=== PATIENT | female | born 1945 | race Caucasian/White ===

== ENCOUNTER → 2019-06-25 | Outpatient (REF) | payer MEDICARE ==
[2019-06-27 10:45] LABS: HEPATITIS A ANTIBODY IGM NEGATIVE (NEGATIVE); HEPATITIS B CORE ANTIBODY IGM NEGATIVE (NEGATIVE); HEPATITIS B SURFACE ANTIGEN NEGATIVE (NEGATIVE); HEPATITIS C VIRUS ABY INDEX < 0.0 INDEX (<0.8)
== END ==
LOC: M LAB REF 12:31
PROVIDERS: ATTEND Internal Medicine
DX: R79.89 Other specified abnormal findings of blood chemistry (principal)

== ENCOUNTER → 2019-06-26 | Outpatient (REF) | payer MEDICARE | LOC: M LAB REF 10:13 | PROVIDERS: ATTEND Internal Medicine | DX: B89 Unspecified parasitic disease (principal) ==

== ENCOUNTER → 2019-07-01 | Outpatient (REF) | payer MEDICARE | LOC: M LAB REF 11:29 | PROVIDERS: ATTEND Internal Medicine | DX: B89 Unspecified parasitic disease (principal) ==

== ENCOUNTER → 2020-09-06 | Outpatient (CLI) | payer MEDICARE ==
--- NOTE | 2020-09-06 12:12 | REP ---
INDICATION: LEFT AXILLARY/PROMINENT BULGE. COMPARISON: Comparison is made with today's mammography.. TECHNIQUE: Left axillary sonography is performed. FINDINGS: Multiple benign appearing lymph nodes are visible in the left axilla. The largest of these measures 3.0 x 0.8 x 1.8 cm. Greatest cortical thickness is normal at 0.3 cm. No suspicious lymph node is seen sonographically or mammographically in the left breast. IMPRESSION: BI-RADS category 2 benign findings. Clinical follow-up is advised. <Electronically signed by Abimael Cardenas > 09/06/20 [id number]
--- NOTE | 2020-09-06 15:25 | REPMRS ---
Patient History The patient states she had a clinical breast exam in July 2020. Family history of colorectal cancer at age 50 or over in father. No breast complaints today Patient signed the MRS sheet 1st covid vaccine 05/20/20-left arm-Moderna 2nd covid vaccine 06/17/20-left arm Most recent priors done @ [facility] Patient Identification Verified Digital Woman Screen Mammo: September 06, 2020 - Exam #: [id number] Bilateral CC and MLO view(s) were taken. Technologist: Magda Ríos, Technologist Prior study comparison: September 24, 2018, bilateral digital mammo screening bilat, performed at [facility] [employer] [facility]. September 13, 2017, bilateral digital mammo screening bilat, performed at [facility] [employer]. September 11, 2016, bilateral digital mammo screening bilat, performed at [facility] [employer]. FINDINGS: There are scattered fibroglandular densities. The Volpara volumetric breast density category is:B. There has been no change in the appearance of the mammogram from the prior studies. There is a mild amount of scattered fibroglandular density which is fairly symmetric. There is no interval development of dominant mass, architectural distortion, or grouped microcalcification suggestive of malignancy. 3-D tomosynthesis shows no additional findings. Assessment: BI-RADS/ACR category 1 mammogram. Negative Mammogram. Recommendation Routine screening mammogram of both breasts in 1 year (for women over age 40). This patient's [facility] Lifetime Breast Cancer Risk is estimated at 2.4 %. This mammogram was interpreted with the aid of an FDA-approved computer-aided dectection system. Electronically Signed By: Abimael Cardenas MD 09/06/20 0615
--- NOTE | 2020-09-06 17:00 | DEXAMM ---
INDICATION: M85.80 DISORDER OF BONE. COMPARISON: 01/25/2011 as well as other prior exams. TECHNIQUE: Bone density was measured using dual-energy x-ray absorptiometry (DEXA). FINDINGS: AP SPINE L1-L4 BMD 1.183 g/cm2 Young Adult T-Score -0.1 Age Matched Z-Score 1.7. LT FEMUR, TOTAL BMD 0.751 g/cm2 Young Adult T-Score -2.0 Age Matched Z-Score -0.3. LT NECK BMD 0.750 g/cm2 Young Adult T-Score -2.1 Age Matched Z-Score -0.2. RT FEMUR, TOTAL BMD 0.741 g/cm2 Young Adult T-Score -2.1 Age Matched Z-Score -0.4. RT NECK BMD 0.726 g/cm2 Young Adult T-Score -2.2 Age Matched Z-Score -0.4. IMPRESSION: There is normal bone density of the spine. There is low bone density of the left hip. There is low bone density of the right hip. The density of the spine has decreased 1.6% since the initial exam on 07/20/2003. The density of the spine increased 9.2% since most recent exam on 01/25/2011. The density of the left hip has decreased 14.9% since initial exam on 07/20/2003. The density of the left hip has decreased 9.7% since most recent exam on 01/25/2011. The density of the right hip has decreased 16.7% since the initial exam on 07/20/2003. The density of the right hip has decreased 9.4% since the most recent exam on 01/25/2011. FOLLOW-UP: Recommendation for the next bone density exam: 2 years. <Electronically signed by Sherman Nassar > 09/06/20 [id number]
== END ==
LOC: M WHC 09:57
PROVIDERS: ATTEND Internal Medicine
DX: Z12.31 Encounter for screening mammogram for malignant neoplasm of breast (principal); M85.89 Other specified disorders of bone density and structure, multiple sites; R22.32 Localized swelling, mass and lump, left upper limb

== ENCOUNTER → 2021-07-04 | Outpatient (CLI) | payer MEDICARE | LOC: M WUC 13:33 | PROVIDERS: ATTEND Internal Medicine | DX: M51.34 Other intervertebral disc degeneration, thoracic region (principal); M43.17 Spondylolisthesis, lumbosacral region; M51.36 Other intervertebral disc degeneration, lumbar region; M51.86 Other intervertebral disc disorders, lumbar region; M25.78 Osteophyte, vertebrae; M41.35 Thoracogenic scoliosis, thoracolumbar region ==

== ENCOUNTER → 2021-07-25 | Outpatient (CLI) | payer MEDICARE | LOC: M WUC 08:41 | PROVIDERS: ATTEND Internal Medicine | DX: R07.9 Chest pain, unspecified (principal); Z87.891 Personal history of nicotine dependence ==

== ENCOUNTER → 2021-08-09 | Outpatient (CLI) | payer MEDICARE | LOC: M PLAIMG 13:11 | PROVIDERS: ATTEND Internal Medicine | DX: M25.762 Osteophyte, left knee (principal) ==

== ENCOUNTER → 2021-08-30 | Outpatient (CLI) | payer MEDICARE | LOC: M PLAIMG 09:49 | PROVIDERS: ATTEND Internal Medicine | DX: M54.42 Lumbago with sciatica, left side (principal) ==

== ENCOUNTER → 2021-09-12 | Outpatient (CLI) | payer MEDICARE | LOC: M PLALAB 11:14 | PROVIDERS: ATTEND Internal Medicine | DX: M16.12 Unilateral primary osteoarthritis, left hip (principal); M25.552 Pain in left hip ==

== ENCOUNTER 2021-10-31 13:52 | Emergency (ER) | payer MEDICARE ==
[~2021-10-31] VITALS: Ht 157.5 cm; Wt 58.2 kg
[2021-10-31 13:53] VITALS: BP 139/82
[2021-10-31] MEDS ORDERED: ASPI81CH33 PO (14:49)
[2021-10-31] MEDS ORDERED: MULTTAB61 PO (14:49)
[2021-10-31] MEDS ORDERED: CALCCAP4 PO (14:49)
[2021-10-31] MEDS ORDERED: [UNRECOGNIZED DRUG - OTHER] OU (14:49)
[2021-10-31] MEDS ORDERED: WHEA1TAB2 PO (14:49)
[2021-10-31] MEDS ORDERED: NITR0.4S14 (14:49)
[2021-10-31] MEDS ORDERED: FLUT15.820 NARES (14:49)
[2021-10-31] MEDS ORDERED: DULO1CAP5 PO (14:49)
[2021-10-31] MEDS ORDERED: PRAM0.5T4 (14:49)
[2021-10-31] MEDS ORDERED: RA M500C PO (14:49)
[2021-10-31] MEDS ORDERED: ACET650T61 PO (14:49)
[2021-10-31] MEDS ORDERED: LEVO50TA5 (14:49)
[2021-10-31] MEDS ORDERED: NORT50CA (14:49)
== END 2021-10-31 18:11 | disposition left against medical advice (07) ==
LOC: M ED 13:52
DX: Z53.21 Procedure and treatment not carried out due to patient leaving prior to being seen by health care provider (principal)

== ENCOUNTER 2021-11-01 06:10 | Emergency (ER) | payer MEDICARE ==
[~2021-11-01] VITALS: Ht 157.5 cm; Wt 58.2 kg
[~2021-11-01 06:10] MED LIST: ACET650T61 PO; ASPI81CH33 PO; CALCCAP4 PO; DULO1CAP5 PO; FLUT15.820 NARES; LEVO50TA5; MULTTAB61 PO; NITR0.4S14; NORT50CA; PRAM0.5T4; RA M500C PO; WHEA1TAB2 PO; [UNRECOGNIZED DRUG - OTHER] OU
[2021-11-01 08:19] LABS: BASO # 0.1 10^3/uL (0.0-0.2); EOS # 0.2 10^3/uL (0.0-0.5); HEMATOCRIT 40.3 % (36.0-47.0); HEMOGLOBIN 13.2 g/dl (12.0-15.5); LYMPH % 12.4 % (24.0-44.0); MEAN CORPUSCULAR HEMOGLOBIN 32.8 pg (27.0-33.0); MEAN CORPUSCULAR HGB CONC 32.8 g/dl (32.0-36.5); MEAN CORPUSCULAR VOLUME 100.2 fl (80.0-96.0); MONO # 0.8 10^3/uL (0.0-0.8); MONO % 9.2 % (2.0-8.0); NEUTROPHILS # 6.3 10^3/uL (1.5-8.5); PLATELET COUNT, AUTOMATED 313 10^3/uL (150-450); RED BLOOD COUNT 4.02 10^6/uL (4.00-5.40); WHITE BLOOD COUNT 8.4 10^3/uL (4.0-10.0)
[2021-11-01 08:38] LABS: ALBUMIN 3.4 GM/DL (3.2-5.2); BILIRUBIN,DIRECT 0.2 MG/DL (0.0-0.2); BILIRUBIN,TOTAL 0.9 MG/DL (0.2-1.0); CALCIUM LEVEL 9.6 MG/DL (8.8-10.2); GLOMERULAR FILTRATION RATE 57.5 (>39); POTASSIUM SERUM 4.4 MEQ/L (3.5-5.1); TOTAL PROTEIN 7.1 GM/DL (6.4-8.2)
[2021-11-01 11:09] VITALS: BP 139/72
== END 2021-11-01 11:18 | disposition home or self-care (01) ==
LOC: M ED 06:10
DX: R11.10 Vomiting, unspecified (principal); R94.31 Abnormal electrocardiogram [ECG] [EKG]; E03.9 Hypothyroidism, unspecified; K64.9 Unspecified hemorrhoids; Z88.5 Allergy status to narcotic agent; Z88.6 Allergy status to analgesic agent; Z88.8 Allergy status to other drugs, medicaments and biological substances; Z79.82 Long term (current) use of aspirin; Z79.899 Other long term (current) drug therapy

== ENCOUNTER → 2022-01-22 | Outpatient (CLI) | payer MEDICARE | LOC: M LABSMTC 11:09 | PROVIDERS: ATTEND Anesthesiology | DX: Z01.812 Encounter for preprocedural laboratory examination (principal); Z20.822 Contact with and (suspected) exposure to COVID-19 ==

== ENCOUNTER 2022-01-26 08:54 | Day surgery (SDC) | payer MEDICARE ==
[~2022-01-26] VITALS: Ht 157.5 cm; Wt 58.1 kg
[~2022-01-26 08:54] MED LIST changes: +NS 1,000 ML IV ONE
[2022-01-26] MEDS ORDERED: propofoL 200 MG/20 ML VIAL As Ordered ONE (09:28)
[2022-01-26] MEDS ORDERED: LIDOCAINE 2% 100MG/5ML SDV (FOR ANES.) As Ordered ONE (09:28)
[2022-01-26] MEDS ORDERED: fentaNYL 100 MCG/2 ML INJECTION As Ordered ONE (10:21)
[2022-01-26 11:02] VITALS: BP 100/59
== END 2022-01-26 11:20 | disposition home or self-care (01) ==
LOC: M OPP 08:54
PROVIDERS: ATTEND Surgery
DX: Z12.11 Encounter for screening for malignant neoplasm of colon (principal); Z86.010 Personal history of colon polyps; Z80.0 Family history of malignant neoplasm of digestive organs; K57.30 Diverticulosis of large intestine without perforation or abscess without bleeding; K44.9 Diaphragmatic hernia without obstruction or gangrene; K30 Functional dyspepsia; Z79.51 Long term (current) use of inhaled steroids; Z79.82 Long term (current) use of aspirin; Z79.890 Hormone replacement therapy; Z79.899 Other long term (current) drug therapy; Z88.5 Allergy status to narcotic agent; Z88.8 Allergy status to other drugs, medicaments and biological substances; Z87.891 Personal history of nicotine dependence; E03.9 Hypothyroidism, unspecified; E51.9 Thiamine deficiency, unspecified; J44.9 Chronic obstructive pulmonary disease, unspecified
CPT/HCPCS: 43235; G0105; J3010

== ENCOUNTER → 2022-02-17 | Outpatient (REF) | payer MEDICARE ==
[~2022-02-17] MED LIST changes: -NS 1,000 ML IV ONE
[2022-02-17 13:22] LABS: APPEARANCE, URINE MANUAL CLOUDY (CLEAR); BILIRUBIN, URINE MANUAL NEGATIVE (NEGATIVE); COLOR, URINE MANUAL YELLOW (YELLOW); GLUCOSE, URINE (UA) MANUAL NEGATIVE (NEGATIVE); KETONE, URINE MANUAL NEGATIVE (NEGATIVE); NITRITE, URINE MANUAL NEGATIVE (NEGATIVE); PROTEIN, URINE MANUAL NEGATIVE (NEGATIVE); SPECIFIC GRAVITY,URINE MANUAL 1.015 (1.002-1.035); UROBILINOGEN, URINE MANUAL NORMAL (NORMAL)
[2022-02-17 13:23] LABS: BLOOD URINE MANUAL POSITIVE (NEGATIVE); LEUKOCYTE ESTERASE, URINE MAN POSITIVE (NEGATIVE)
[2022-02-17 13:34] LABS: WBC, URINE TNTC /hpf (0-3)
[2022-02-17 13:35] LABS: BACTERIA, URINE LARGE AMOUNT; HYALINE CAST, URINE NONE SEEN /lpf (0-1); MUCUS, URINE SMALL AMOUNT (NEGATIVE); SQUAMOUS EPITHELIAL CELL URINE SMALL AMOUNT /hpf (SMALL AMT)
== END ==
LOC: M LAB REF 12:11
PROVIDERS: ATTEND Physician Assistant
DX: N39.0 Urinary tract infection, site not specified (principal)

== ENCOUNTER 2022-04-07 22:33 | Emergency (ER) | payer MEDICARE ==
[~2022-04-07] VITALS: Ht 157.5 cm; Wt 57.7 kg
[2022-04-07 22:34] VITALS: BP 146/77
== END 2022-04-08 01:03 | disposition left against medical advice (07) ==
LOC: M ED 22:33
DX: Z53.21 Procedure and treatment not carried out due to patient leaving prior to being seen by health care provider (principal)

== ENCOUNTER → 2022-04-21 | Outpatient (CLI) | payer MEDICARE | LOC: M RAD 09:53 | PROVIDERS: ATTEND Internal Medicine | DX: M54.2 Cervicalgia (principal) ==

== ENCOUNTER → 2022-05-09 | Outpatient (REF) | payer MEDICARE | LOC: M LAB REF 16:21 | PROVIDERS: ATTEND Internal Medicine | DX: R32 Unspecified urinary incontinence (principal) ==

== ENCOUNTER → 2022-05-22 | Outpatient (CLI) | payer MEDICARE ==
[~2022-05-22] MED LIST changes: +PROHANCE 279.3MG/ML 15ML VIAL As Ordered ONE
== END ==
LOC: M RAD 10:28
PROVIDERS: ATTEND Internal Medicine
DX: H93.13 Tinnitus, bilateral (principal); R42 Dizziness and giddiness
CPT/HCPCS: 70553; A9576

== ENCOUNTER → 2022-08-04 | Outpatient (REF) | payer MEDICARE ==
[~2022-08-04] MED LIST changes: -PROHANCE 279.3MG/ML 15ML VIAL As Ordered ONE
== END ==
LOC: M LAB REF 12:12
PROVIDERS: ATTEND Internal Medicine
DX: R32 Unspecified urinary incontinence (principal); M54.50 Low back pain, unspecified

== ENCOUNTER → 2022-10-16 | Outpatient (REF) | payer MEDICARE ==
[2022-10-17 13:40] LABS: HEPATITIS B SURFACE ANTIGEN NEGATIVE (NEGATIVE)
[2022-10-17 14:01] LABS: HEPATITIS C VIRUS ABY INDEX 0.13 INDEX (<0.8)
[2022-10-17 14:02] LABS: HEPATITIS B CORE ANTIBODY IGM NEGATIVE (NEGATIVE)
== END ==
LOC: M LAB REF 10:37
PROVIDERS: ATTEND Internal Medicine
DX: R74.01 Elevation of levels of liver transaminase levels (principal)

== ENCOUNTER → 2022-10-23 | Outpatient (REF) | payer MEDICARE ==
[2022-10-23 16:22] LABS: APPEARANCE, URINE CLOUDY (CLEAR); BACTERIA, URINE AUTO NEGATIVE (NEGATIVE); BILIRUBIN, URINE AUTO NEGATIVE (NEGATIVE); BLOOD, URINE BLOOD NEGATIVE (NEGATIVE); COLOR, URINE YELLOW (YELLOW); GLUCOSE, URINE (UA) AUTO NEGATIVE (NEGATIVE); KETONE, URINE AUTO NEGATIVE (NEGATIVE); LEUKOCYTE ESTERASE, URINE AUTO 3+ (NEGATIVE); MUCUS, URINE SMALL (NEGATIVE); NITRITE, URINE AUTO NEGATIVE (NEGATIVE); PROTEIN, URINE AUTO NEGATIVE (NEGATIVE); RBC, URINE AUTO 4 /HPF (0-3); SPECIFIC GRAVITY URINE AUTO 1.018 (1.002-1.035); SQUAMOUS EPITHELIAL CELL UR AU 2 /HPF (0-6); TRANSITIONAL EPITHELIAL AUTO 2 /HPF; UROBILINOGEN, URINE AUTO 0.2 mg/dL (0.0-2.0); WBC, URINE AUTO TNTC /HPF (0-3)
== END ==
LOC: M LAB REF 15:30
PROVIDERS: ATTEND Physician Assistant Medical
DX: N39.0 Urinary tract infection, site not specified (principal)

== ENCOUNTER → 2022-11-21 | Outpatient (CLI) | payer MEDICARE ==
[2022-11-21 15:02] LABS: RHEUMATOID FACTOR QUANT 9.9 IU/ML (<14)
[2022-11-21 15:04] LABS: FOLATE 5.7 NG/ML (>5.4); FREE THYROXINE INDEX 2.3 % (1.3-4.8); T UPTAKE 34.3 % (22.5-37.0); THYROXINE (T4) 6.7 UG/DL (4.5-10.9)
[2022-11-21 15:05] LABS: THYROID STIMULATING HORMONE 3.684 uIU/ML (0.55-4.78)
[2022-11-21 15:57] LABS: HEMOGLOBIN A1c 5.5 % (4.0-6.0)
== END ==
LOC: M PLALAB 10:24
PROVIDERS: ATTEND Psychiatry & Neurology Neurology
DX: E51.9 Thiamine deficiency, unspecified (principal); E07.9 Disorder of thyroid, unspecified; E11.9 Type 2 diabetes mellitus without complications; G62.9 Polyneuropathy, unspecified

== ENCOUNTER → 2023-02-24 | Outpatient (CLI) | payer MEDICARE ==
[~2023-02-24] MED LIST changes: +BUSP5TA PO; +METO1TAB32 PO; +OMEP10CASR PO; +OXYB-54 PO
== END ==
LOC: M RAD 14:30
PROVIDERS: ATTEND Orthopaedic Surgery
DX: M41.80 Other forms of scoliosis, site unspecified (principal); M48.50XA Collapsed vertebra, not elsewhere classified, site unspecified, initial encounter for fracture; M51.26 Other intervertebral disc displacement, lumbar region; M51.27 Other intervertebral disc displacement, lumbosacral region

== ENCOUNTER → 2023-03-02 | Outpatient (CLI) | payer MEDICARE ==
[~2023-03-02] MED LIST changes: +ISOVUE-300 61% 100ML VIAL As Ordered ONE; +LIDOCAINE 1% MDV 20ML VIAL As Ordered ONE; +methylPREDNISolone SUSP 40MG/ML 1ML VIAL (DEPO MEDROL) As Ordered ONE
== END ==
LOC: M RAD 12:24
PROVIDERS: ATTEND Orthopaedic Surgery
DX: M16.12 Unilateral primary osteoarthritis, left hip (principal)
CPT/HCPCS: 20610; 77002; J0665; J1030; Q9967

== ENCOUNTER → 2023-05-11 | Outpatient (CLI) | payer MEDICARE, OTHER ==
[~2023-05-11] MED LIST changes: +DULO1CAP6 PO; +FAMO40TA3 PO; -ISOVUE-300 61% 100ML VIAL As Ordered ONE; -LEVO50TA5; +LEVO50TA5 PO; -LIDOCAINE 1% MDV 20ML VIAL As Ordered ONE; -NORT50CA; +NORT50CA PO; +OMEP-173 PO; -PRAM0.5T4; +PRAM0.5T4 PO; -methylPREDNISolone SUSP 40MG/ML 1ML VIAL (DEPO MEDROL) As Ordered ONE
== END ==
LOC: M SOG 08:02
PROVIDERS: ATTEND Orthopaedic Surgery
DX: M16.12 Unilateral primary osteoarthritis, left hip (principal)

== ENCOUNTER → 2023-06-01 | Outpatient (CLI) | payer MEDICARE ==
[2023-06-01 13:24] LABS: HEMATOCRIT 39.5 % (36.0-47.0); HEMOGLOBIN 12.5 g/dl (12.0-15.5); MEAN CORPUSCULAR HEMOGLOBIN 30.3 pg (27.0-33.0); MEAN CORPUSCULAR HGB CONC 31.6 g/dl (32.0-36.5); MEAN CORPUSCULAR VOLUME 95.6 fl (80.0-96.0); PLATELET COUNT, AUTOMATED 343 10^3/uL (150-450); RED BLOOD COUNT 4.13 10^6/uL (4.00-5.40); WHITE BLOOD COUNT 8.2 10^3/uL (4.0-10.0)
[2023-06-01 13:30] LABS: ALBUMIN 3.3 G/DL (3.2-5.2); ALKALINE PHOSPHATASE 96 U/L (46-116); ALT/SGPT 30 U/L (7.0-40); AST/SGOT 24 U/L (<34); BILIRUBIN,TOTAL 0.7 MG/DL (0.3-1.2); BLOOD UREA NITROGEN 17 MG/DL (9-23); CARBON DIOXIDE LEVEL 31 MMOL/L (20-31); CHLORIDE LEVEL 107 MMOL/L (98-107); CHOLESTEROL LEVEL 226 MG/DL (<200); CHOLESTEROL RISK RATIO 2.55 (<5); CREATININE FOR GFR 0.88 MG/DL (0.55-1.30); GLOMERULAR FILTRATION RATE > 60.0 (>39); GLUCOSE, FASTING 89 MG/DL (74-106); HDL CHOLESTEROL 88.6 MG/DL (>40); LDL CHOLESTEROL 111.2 MG/DL (<100); MAGNESIUM LEVEL 2.3 MG/DL (1.8-2.4); NON-HDL-C 137.4 MG/DL; POTASSIUM SERUM 4.4 MMOL/L (3.5-5.1); SODIUM LEVEL 141 MMOL/L (136-145); TOTAL PROTEIN 6.6 G/DL (5.7-8.2); TRIGLYCERIDES LEVEL 131 MG/DL (<150)
[2023-06-01 13:34] LABS: THYROID STIMULATING HORMONE 3.321 uIU/ML (0.55-4.78)
[2023-06-01 13:51] LABS: APPEARANCE, URINE HAZY (CLEAR); BACTERIA, URINE AUTO 1+ (NEGATIVE); BILIRUBIN, URINE AUTO NEGATIVE (NEGATIVE); BLOOD, URINE BLOOD NEGATIVE (NEGATIVE); CALCIUM OXALATE CRYSTALS SMALL; COLOR, URINE AMBER (YELLOW); GLUCOSE, URINE (UA) AUTO NEGATIVE (NEGATIVE); KETONE, URINE AUTO NEGATIVE (NEGATIVE); LEUKOCYTE ESTERASE, URINE AUTO NEGATIVE (NEGATIVE); MUCUS, URINE SMALL (NEGATIVE); NITRITE, URINE AUTO NEGATIVE (NEGATIVE); PROTEIN, URINE AUTO 1+ mg/dL (NEGATIVE); RBC, URINE AUTO 2 /HPF (0-3); SPECIFIC GRAVITY URINE AUTO 1.028 (1.002-1.035); SQUAMOUS EPITHELIAL CELL UR AU 3 /HPF (0-6); UROBILINOGEN, URINE AUTO 0.2 mg/dL (0.0-2.0); WBC, URINE AUTO 2 /HPF (0-3)
== END ==
LOC: M PLALAB 10:08
PROVIDERS: ATTEND Internal Medicine
DX: D64.9 Anemia, unspecified (principal); I35.1 Nonrheumatic aortic (valve) insufficiency; E03.9 Hypothyroidism, unspecified; R32 Unspecified urinary incontinence; F03.90 Unspecified dementia, unspecified severity, without behavioral disturbance, psychotic disturbance, mood disturbance, and anxiety

== ENCOUNTER 2023-06-05 08:52 | Day surgery (SDC) | payer MEDICARE ==
[~2023-06-05] VITALS: Ht 157.5 cm; Wt 59.9 kg
[~2023-06-05 08:52] MED LIST changes: +LIDOCAINE W/EPINEPHRINE 1% 20ML VIAL XX ONE; +SODIUM BICARBONATE 8.4% INJ 50MEQ 50ML VIAL XX ONE
[2023-06-05] MEDS: MUPIROCIN 2% OINT 22 GM TUBE As Ordered ONE (11:17)
[2023-06-05 11:31] VITALS: BP 134/70; TEMP 98.6; O2SAT 96
== END 2023-06-05 11:48 | disposition home or self-care (01) ==
LOC: M SDC 08:52
PROVIDERS: ATTEND Orthopaedic Surgery Hand Surgery
DX: G56.02 Carpal tunnel syndrome, left upper limb (principal); G25.81 Restless legs syndrome; F41.9 Anxiety disorder, unspecified; E07.9 Disorder of thyroid, unspecified; Z88.5 Allergy status to narcotic agent; Z79.82 Long term (current) use of aspirin; Z79.899 Other long term (current) drug therapy; K44.9 Diaphragmatic hernia without obstruction or gangrene; J44.9 Chronic obstructive pulmonary disease, unspecified

== ENCOUNTER → 2023-06-29 | Outpatient (CLI) | payer MEDICARE, OTHER ==
[~2023-06-29] MED LIST changes: -LIDOCAINE W/EPINEPHRINE 1% 20ML VIAL XX ONE; -SODIUM BICARBONATE 8.4% INJ 50MEQ 50ML VIAL XX ONE
== END ==
LOC: M SOG 07:57
PROVIDERS: ATTEND Physician Assistant
DX: M25.562 Pain in left knee (principal); M25.561 Pain in right knee

== ENCOUNTER → 2023-07-16 | Outpatient (CLI) | payer MEDICARE | LOC: M WHC 14:30 | PROVIDERS: ATTEND Internal Medicine | DX: Z12.31 Encounter for screening mammogram for malignant neoplasm of breast (principal); M85.80 Other specified disorders of bone density and structure, unspecified site; M81.0 Age-related osteoporosis without current pathological fracture ==

== ENCOUNTER → 2023-08-06 | Outpatient (CLI) | payer MEDICARE ==
[~2023-08-06] MED LIST changes: +GASTROGRAFIN SOLUTION 30ML As Ordered ONE; +ISOVUE-370 76% 100ML VIAL As Ordered ONE
== END ==
LOC: M RAD 14:05
PROVIDERS: ATTEND Internal Medicine
DX: R10.9 Unspecified abdominal pain (principal)
CPT/HCPCS: 74178; Q9963; Q9967

== ENCOUNTER → 2023-09-03 | Outpatient (CLI) | payer MEDICARE ==
[~2023-09-03] MED LIST changes: -GASTROGRAFIN SOLUTION 30ML As Ordered ONE; -ISOVUE-370 76% 100ML VIAL As Ordered ONE; +PROHANCE 279.3MG/ML 15ML VIAL ONE
== END ==
LOC: M PLAIMG 13:14
PROVIDERS: ATTEND Internal Medicine
DX: D37.8 Neoplasm of uncertain behavior of other specified digestive organs (principal); N28.1 Cyst of kidney, acquired; K44.9 Diaphragmatic hernia without obstruction or gangrene
CPT/HCPCS: 74183; A9576

== ENCOUNTER 2023-09-25 04:57 | Inpatient (IN) | payer MEDICARE ==
[2023-09-25] VITALS (7 sets, daily range): BP systolic 97–164; BP diastolic 52–87; TEMP 97.3–98; O2SAT 94–97
[~2023-09-25] VITALS: Ht 157.5 cm; Wt 67.8 kg
[~2023-09-25 04:57] MED LIST changes: -NITR0.4S14; +NITR0.4S14 SL; -PROHANCE 279.3MG/ML 15ML VIAL ONE
[2023-09-25] MEDS: ONDANSETRON 4MG 2ML VIAL IV ONE ×2 (05:30→07:43)
[2023-09-25] MEDS: MORPHINE 4 MG/ML 1ML VIAL IV ONE (05:31)
[2023-09-25] MEDS: NS 1,000 ML IV ONE ×2 (05:31→07:17)
[2023-09-25 05:35] LABS: BASO % 0.2 % (0.0-1.0); EOS % 0.6 % (0.0-3.0); HEMATOCRIT 35.1 % (36.0-47.0); HEMOGLOBIN 11.2 g/dl (12.0-15.5); LYMPH # 0.8 10^3/uL (1.5-5.0); MEAN CORPUSCULAR HEMOGLOBIN 30.5 pg (27.0-33.0); MEAN CORPUSCULAR HGB CONC 31.9 g/dl (32.0-36.5); MEAN CORPUSCULAR VOLUME 95.6 fl (80.0-96.0); MONO # 0.2 10^3/uL (0.0-0.8); MONO % 4.5 % (2.0-8.0); NEUTROPHILS # 4.3 10^3/uL (1.5-8.5); NEUTROPHILS % 80.5 % (36.0-66.0); PLATELET COUNT, AUTOMATED 317 10^3/uL (150-450); RED BLOOD COUNT 3.67 10^6/uL (4.00-5.40); WHITE BLOOD COUNT 5.4 10^3/uL (4.0-10.0)
[2023-09-25] MEDS ORDERED: ISOVUE-370 76% 100ML VIAL As Ordered ONE (05:35)
[2023-09-25 06:00] LABS: ALBUMIN 2.8 G/DL (3.2-5.2); BILIRUBIN,DIRECT 0.2 MG/DL (<0.4); BILIRUBIN,TOTAL 0.7 MG/DL (0.3-1.2); CREATININE FOR GFR 1.05 MG/DL (0.55-1.30); GLOMERULAR FILTRATION RATE 54.1 (>39); POTASSIUM SERUM 4.7 MMOL/L (3.5-5.1); TOTAL PROTEIN 5.4 G/DL (5.7-8.2)
[2023-09-25] MEDS: fentaNYL 100 MCG/2 ML INJECTION IV ONE (06:01)
[2023-09-25] MEDS: PIPERACILLIN/TAZOBACTAM SOD 4.5 GM in D5W MINI-BAG PLUS 50 ML IV ONE (07:17)
[2023-09-25] MEDS: fentaNYL 100 MCG/2 ML INJECTION IV PRN (07:42)
[2023-09-25] MEDS ORDERED: SUGAMMADEX SODIUM 500 MG/5 ML VIAL (BRIDION) As Ordered ONE (07:52)
[2023-09-25] MEDS ORDERED: LIDOCAINE 2% 100MG/5ML SDV (FOR ANES.) As Ordered ONE (07:52)
[2023-09-25] MEDS ORDERED: ROCURONIUM BROMIDE 50MG/5ML VIAL As Ordered ONE (07:52)
[2023-09-25] MEDS ORDERED: propofoL 200 MG/20 ML VIAL As Ordered ONE (07:52)
[2023-09-25] MEDS ORDERED: ONDANSETRON 4MG 2ML VIAL As Ordered ONE (07:52)
[2023-09-25] MEDS ORDERED: fentaNYL 250 MCG/5 ML INJECTION As Ordered ONE (07:56)
[2023-09-25] MEDS ORDERED: PIPERACILLIN/TAZOBACTAM SOD 3.375 GM in D5W MINI-BAG PLUS 50 ML IV SCH (09:10)
[2023-09-25] MEDS ORDERED: PANT-23 PO (09:19)
[2023-09-25] MEDS ORDERED: METO1TAB7 PO (09:19)
[2023-09-25] MEDS ORDERED: ASPI81TA26 PO (09:19)
[2023-09-25] MEDS ORDERED: HOME MED LIST COMPLETE! XX SCH (09:20)
[2023-09-25] MEDS ORDERED: CALCIUM CHLORIDE 10% 1 GM/10 ML SYR As Ordered ONE (12:15)
[2023-09-25] MEDS ORDERED: PHENYLEPHRINE 10MG/ML 1ML VIAL As Ordered ONE (12:27)
[2023-09-25] MEDS: ZOSYN 4.5GM VIAL As Ordered ONE (13:00)
[2023-09-25 14:00] LABS: HEMATOCRIT 28.2 % (36.0-47.0); HEMOGLOBIN 9.1 g/dl (12.0-15.5); MEAN CORPUSCULAR HGB CONC 32.3 g/dl (32.0-36.5); MEAN CORPUSCULAR VOLUME 95.9 fl (80.0-96.0); PLATELET COUNT, AUTOMATED 210 10^3/uL (150-450); RED BLOOD COUNT 2.94 10^6/uL (4.00-5.40); WHITE BLOOD COUNT 1.4 10^3/uL (4.0-10.0)
[2023-09-25] MEDS: LIDOCAINE 1% SDV 30ML VIAL As Ordered ONE (14:03)
[2023-09-25 14:17] LABS: INR 1.2; PARTIAL THROMBOPLASTIN TIME 26.7 SECONDS (24.8-34.2); PROTHROMBIN TIME 14.9 SECONDS (12.5-14.5)
[2023-09-25 14:38] LABS: BLOOD UREA NITROGEN 20 MG/DL (9-23); CALCIUM LEVEL 10.3 MG/DL (8.3-10.6); CARBON DIOXIDE LEVEL 21 MMOL/L (20-31); CHLORIDE LEVEL 115 MMOL/L (98-107); CREATININE FOR GFR 0.69 MG/DL (0.55-1.30); GLOMERULAR FILTRATION RATE > 60.0 (>39); GLUCOSE, FASTING 133 MG/DL (74-106); POTASSIUM SERUM 4.1 MMOL/L (3.5-5.1); SODIUM LEVEL 143 MMOL/L (136-145)
[2023-09-25] MEDS ORDERED: MORPHINE 4 MG/ML 1ML VIAL IV PRN (15:10)
[2023-09-25] MEDS ORDERED: NITROGLYCERIN 0.4MG SUBL TABLET SL SCH (15:10)
[2023-09-25] MEDS ORDERED: fentaNYL 100 MCG/2 ML INJECTION IV PRN (16:00)
[2023-09-25] MEDS: LR 1,000 ML IV SCH ×3 (16:00→17:11)
[2023-09-25] MEDS: PIPERACILLIN/TAZOBACTAM SOD 3.375 GM in D5W MINI-BAG PLUS 50 ML IV SCH (16:17)
[2023-09-25] MEDS: ONDANSETRON 4MG 2ML VIAL IV PRN ×2 (16:20→20:25)
[2023-09-25] MEDS: ASPIRIN 81MG ENTERIC TABLET PO SCH (17:10)
[2023-09-25] MEDS: LEVOTHYROXINE 50MCG TABLET (0.05MG) PO SCH (17:11)
[2023-09-25] MEDS: KETOROLAC 30 MG/ML 1ML VIAL IV SCH (18:02)
[2023-09-25] MEDS: NORTRIPTYLINE 25 MG CAP PO SCH (20:21)
[2023-09-25] MEDS: MORPHINE 2 MG/ML 1ML VIAL IV PRN (20:22)
[2023-09-25] MEDS: METOPROLOL SUCC (TopROL XL) 50MG **XL** TAB PO SCH (22:15)
[2023-09-26] VITALS (10 sets, daily range): BP systolic 83–104; BP diastolic 50–65; TEMP 97.1–98.5; O2SAT 89–94
[2023-09-26 04:33] LABS: BASO % 0.2 % (0.0-1.0); HEMATOCRIT 28.4 % (36.0-47.0); HEMOGLOBIN 9.2 g/dl (12.0-15.5); LYMPH # 0.5 10^3/uL (1.5-5.0); LYMPH % 5.4 % (24.0-44.0); MEAN CORPUSCULAR HEMOGLOBIN 31.1 pg (27.0-33.0); MEAN CORPUSCULAR HGB CONC 32.4 g/dl (32.0-36.5); MEAN CORPUSCULAR VOLUME 95.9 fl (80.0-96.0); MONO # 0.5 10^3/uL (0.0-0.8); MONO % 5.8 % (2.0-8.0); NEUTROPHILS % 87.9 % (36.0-66.0); PLATELET COUNT, AUTOMATED 246 10^3/uL (150-450); RED BLOOD COUNT 2.96 10^6/uL (4.00-5.40); WHITE BLOOD COUNT 9.1 10^3/uL (4.0-10.0)
[2023-09-26 04:58] LABS: C REACTIVE PROTEIN QUANTITATIV 23.6 MG/DL (<1.0)
[2023-09-26 05:01] LABS: ALBUMIN 1.9 G/DL (3.2-5.2); BILIRUBIN,TOTAL 0.8 MG/DL (0.3-1.2); CALCIUM LEVEL 8.9 MG/DL (8.3-10.6); CREATININE FOR GFR 0.96 MG/DL (0.55-1.30); MAGNESIUM LEVEL 1.6 MG/DL (1.8-2.4); POTASSIUM SERUM 4.9 MMOL/L (3.5-5.1); TOTAL PROTEIN 4.3 G/DL (5.7-8.2)
[2023-09-26] MEDS: PANTOPRAZOLE 40MG VIAL IV SCH (08:38)
[2023-09-26] MEDS: NS 500 ML IV ONE (09:26)
[2023-09-26] MEDS: LACTULOSE 20GM/30ML SYRUP UDC PO SCH (10:20)
[2023-09-26] MEDS: MAG SULF 1GM/100ML (MAG RUN) 1 GM in IV 1 EA IV ONE (10:21)
[2023-09-26] MEDS: FLEET ENEMA PR SCH (11:33)
[2023-09-26] MEDS: ENOXAPARIN 40MG/0.4ML SYRINGE (J1650 PER 10MG) SC SCH (12:24)
[2023-09-26] MEDS: ACETAMINOPHEN *IV* 1,000 MG in IV 1 EA IV ONE (21:31)
[2023-09-27] VITALS (38 sets, daily range): BP systolic 70–137; BP diastolic 42–70; TEMP 97–98.6; O2SAT 86–100
[2023-09-27] MEDS: LR 1,000 ML IV ONE (00:17)
[2023-09-27 00:56] LABS: MEAN CORPUSCULAR HEMOGLOBIN 30.9 pg (27.0-33.0); MEAN CORPUSCULAR HGB CONC 32.7 g/dl (32.0-36.5); MEAN CORPUSCULAR VOLUME 94.5 fl (80.0-96.0); PLATELET COUNT, AUTOMATED 182 10^3/uL (150-450)
[2023-09-27 00:58] LABS: HEMATOCRIT 20.8 % (36.0-47.0); HEMOGLOBIN 6.8 g/dl (12.0-15.5)
[2023-09-27 01:15] LABS: C REACTIVE PROTEIN QUANTITATIV 30.2 MG/DL (<1.0)
[2023-09-27 01:23] LABS: PROCALCITONIN 20.03 ng/ml
[2023-09-27 01:26] LABS: CALCIUM LEVEL 7.7 MG/DL (8.3-10.6); CREATININE FOR GFR 1.04 MG/DL (0.55-1.30); GLOMERULAR FILTRATION RATE 54.7 (>39); POTASSIUM SERUM 4.4 MMOL/L (3.5-5.1)
[2023-09-27 01:37] LABS: BASOPHILS 1 % (0-1); EOSINOPHILS 4 % (0-3); LYMPHOCYTES 17 % (16-44); MONOCYTES 2 % (0-5); NEUTROPHILS 72 % (28-66)
[2023-09-27 01:38] LABS: PLATELET ESTIMATE NORMAL (NORMAL)
[2023-09-27] MEDS: VANCOMYCIN HCL 750 MG, VIAL MATE ADAPTER 1 EACH in D5W 250 ML IV ONE (01:49)
[2023-09-27] MEDS: VANCOMYCIN HCL 500 MG in D5W MINI-BAG PLUS 100 ML IV ONE (03:09)
[2023-09-27 07:28] LABS: BASO % 0.6 % (0.0-1.0); EOS # 0.1 10^3/uL (0.0-0.5); EOS % 3.3 % (0.0-3.0); HEMATOCRIT 29.6 % (36.0-47.0); LYMPH # 0.3 10^3/uL (1.5-5.0); LYMPH % 10.1 % (24.0-44.0); MEAN CORPUSCULAR HEMOGLOBIN 30.4 pg (27.0-33.0); MEAN CORPUSCULAR HGB CONC 33.1 g/dl (32.0-36.5); MEAN CORPUSCULAR VOLUME 91.9 fl (80.0-96.0); MONO # 0.2 10^3/uL (0.0-0.8); MONO % 6.5 % (2.0-8.0); NEUTROPHILS # 2.7 10^3/uL (1.5-8.5); NEUTROPHILS % 79.2 % (36.0-66.0); PLATELET COUNT, AUTOMATED 160 10^3/uL (150-450); RED BLOOD COUNT 3.22 10^6/uL (4.00-5.40); WHITE BLOOD COUNT 3.4 10^3/uL (4.0-10.0)
[2023-09-27 07:50] LABS: HEMOGLOBIN 9.8 g/dl (12.0-15.5)
[2023-09-27 07:54] LABS: CALCIUM LEVEL 7.9 MG/DL (8.3-10.6); CREATININE FOR GFR 0.96 MG/DL (0.55-1.30)
[2023-09-27 08:02] LABS: C REACTIVE PROTEIN QUANTITATIV 30.4 MG/DL (<1.0)
[2023-09-27] MEDS: VANCOMYCIN HCL 1,000 MG, VIAL MATE ADAPTER 1 EACH in D5W 250 ML IV SCH (14:29)
[2023-09-27] MEDS: ACETAMINOPHEN 500 MG TAB PO PRN (18:38)
[2023-09-27] MEDS: PRAMIPEXOLE 0.25 MG TAB PO SCH (22:18)
[2023-09-27] MEDS: MAGNESIUM OXIDE 400MG TAB (MAG-OX) PO SCH (22:19)
[2023-09-28] VITALS (7 sets, daily range): BP systolic 132–153; BP diastolic 68–78; TEMP 97.9–98.9; O2SAT 79–97
[2023-09-28] MEDS: PRAMIPEXOLE 0.25 MG TAB PO ONE (00:24)
[2023-09-28 08:08] LABS: HEMATOCRIT 29.1 % (36.0-47.0); HEMOGLOBIN 9.8 g/dl (12.0-15.5); MEAN CORPUSCULAR HEMOGLOBIN 29.8 pg (27.0-33.0); MEAN CORPUSCULAR HGB CONC 33.7 g/dl (32.0-36.5); MEAN CORPUSCULAR VOLUME 88.4 fl (80.0-96.0); PLATELET COUNT, AUTOMATED 198 10^3/uL (150-450); RED BLOOD COUNT 3.29 10^6/uL (4.00-5.40); WHITE BLOOD COUNT 5.3 10^3/uL (4.0-10.0)
[2023-09-28 08:41] LABS: VANCOMYCIN RANDOM 11.2 UG/ML
[2023-09-28 08:42] LABS: BLOOD UREA NITROGEN 18 MG/DL (9-23); CALCIUM LEVEL 7.6 MG/DL (8.3-10.6); CARBON DIOXIDE LEVEL 26 MMOL/L (20-31); CHLORIDE LEVEL 110 MMOL/L (98-107); CREATININE FOR GFR 0.78 MG/DL (0.55-1.30); GLOMERULAR FILTRATION RATE > 60.0 (>39); GLUCOSE, FASTING 82 MG/DL (74-106); MAGNESIUM LEVEL 1.8 MG/DL (1.8-2.4); POTASSIUM SERUM 3.6 MMOL/L (3.5-5.1); SODIUM LEVEL 141 MMOL/L (136-145)
[2023-09-28 09:26] LABS: ANISOCYTOSIS 1+; ATYPICAL LYMPH 1 % (0-5); EOSINOPHILS 4 % (0-3); LYMPHOCYTES 6 % (16-44); METAMYELOCYTES 2 % (0-0); MONOCYTES 6 % (0-5); NEUTROPHILS 72 % (28-66)
[2023-09-28 09:28] LABS: PLATELET ESTIMATE NORMAL (NORMAL)
[2023-09-28 12:03] LABS: PROCALCITONIN 7.36 ng/ml
[2023-09-28] MEDS: METOPROLOL SUCC (TopROL XL) 50MG **XL** TAB PO SCH (20:17)
[2023-09-29] VITALS (8 sets, daily range): BP systolic 141–160; BP diastolic 74–90; TEMP 97.5–98.8; O2SAT 90–98
[2023-09-29] MEDS: CEPACOL LOZENGE PO PRN (00:26)
[2023-09-29 07:02] LABS: BASO % 0.4 % (0.0-1.0); EOS # 0.2 10^3/uL (0.0-0.5); EOS % 2.9 % (0.0-3.0); HEMATOCRIT 32.1 % (36.0-47.0); HEMOGLOBIN 10.7 g/dl (12.0-15.5); LYMPH # 0.7 10^3/uL (1.5-5.0); MEAN CORPUSCULAR HEMOGLOBIN 29.7 pg (27.0-33.0); MEAN CORPUSCULAR HGB CONC 33.3 g/dl (32.0-36.5); MEAN CORPUSCULAR VOLUME 89.2 fl (80.0-96.0); MONO # 0.5 10^3/uL (0.0-0.8); MONO % 7.8 % (2.0-8.0); NEUTROPHILS # 5.4 10^3/uL (1.5-8.5); PLATELET COUNT, AUTOMATED 226 10^3/uL (150-450); WHITE BLOOD COUNT 6.9 10^3/uL (4.0-10.0)
[2023-09-29 07:32] LABS: BLOOD UREA NITROGEN 13 MG/DL (9-23); CALCIUM LEVEL 7.7 MG/DL (8.3-10.6); CARBON DIOXIDE LEVEL 27 MMOL/L (20-31); CHLORIDE LEVEL 107 MMOL/L (98-107); CREATININE FOR GFR 0.64 MG/DL (0.55-1.30); GLOMERULAR FILTRATION RATE > 60.0 (>39); GLUCOSE, FASTING 84 MG/DL (74-106); POTASSIUM SERUM 3.6 MMOL/L (3.5-5.1); SODIUM LEVEL 140 MMOL/L (136-145)
[2023-09-29] MEDS: POTASSIUM CHLORIDE 10MEQ SR TABLET PO SCH (08:26)
[2023-09-29] MEDS ORDERED: PERCOCET 5MG/325MG TAB PO PRN ×2 (09:45)
[2023-09-29] MEDS: AUGMENTIN 875 MG TAB PO SCH (13:12)
[2023-09-29] MEDS: metroNIDAZOLE (FLAGYL) 500MG TABLET PO SCH (13:12)
[2023-09-29] MEDS: FUROSEMIDE 40MG/4ML VIAL IV ONE (15:01)
[2023-09-29] MEDS: CALCIUM CARBONATE 500 MG CHEW U/D PO PRN (21:42)
[2023-09-30] VITALS (9 sets, daily range): BP systolic 132–165; BP diastolic 78–108; TEMP 97.3–101.2; O2SAT 91–95
[2023-09-30] MEDS: LEVOTHYROXINE 50MCG TABLET (0.05MG) PO SCH (05:15)
[2023-09-30 08:26] LABS: BASO # 0.1 10^3/uL (0.0-0.2); BASO % 0.7 % (0.0-1.0); EOS # 0.2 10^3/uL (0.0-0.5); EOS % 1.7 % (0.0-3.0); HEMATOCRIT 37.5 % (36.0-47.0); HEMOGLOBIN 12.4 g/dl (12.0-15.5); LYMPH # 1.3 10^3/uL (1.5-5.0); LYMPH % 13.5 % (24.0-44.0); MEAN CORPUSCULAR HEMOGLOBIN 29.7 pg (27.0-33.0); MEAN CORPUSCULAR HGB CONC 33.1 g/dl (32.0-36.5); MEAN CORPUSCULAR VOLUME 89.9 fl (80.0-96.0); MONO # 1.1 10^3/uL (0.0-0.8); NEUTROPHILS # 6.7 10^3/uL (1.5-8.5); NEUTROPHILS % 68.8 % (36.0-66.0); PLATELET COUNT, AUTOMATED 284 10^3/uL (150-450); RED BLOOD COUNT 4.17 10^6/uL (4.00-5.40); WHITE BLOOD COUNT 9.7 10^3/uL (4.0-10.0)
[2023-09-30 08:54] LABS: BLOOD UREA NITROGEN 10 MG/DL (9-23); CALCIUM LEVEL 8.6 MG/DL (8.3-10.6); CARBON DIOXIDE LEVEL 27 MMOL/L (20-31); CHLORIDE LEVEL 106 MMOL/L (98-107); CREATININE FOR GFR 0.64 MG/DL (0.55-1.30); GLOMERULAR FILTRATION RATE > 60.0 (>39); GLUCOSE, FASTING 114 MG/DL (74-106); MAGNESIUM LEVEL 1.9 MG/DL (1.8-2.4); POTASSIUM SERUM 4.1 MMOL/L (3.5-5.1); SODIUM LEVEL 140 MMOL/L (136-145)
[2023-09-30] MEDS: PANTOPRAZOLE 20 MG TAB PO SCH (10:54)
[2023-09-30] MEDS: FUROSEMIDE 40MG/4ML VIAL IV STA (14:42)
[2023-09-30] MEDS: PINK BISMUTH SUSP 524MG/30ML ORAL SYRINGE PO PRN (15:40)
[2023-09-30] MEDS: ACETAMINOPHEN *IV* 500 MG in IV 1 EA IV ONE (20:39)
[2023-09-30 20:48] LABS: VENOUS BASE EXCESS 0.9 (-2.0-2.0); VENOUS HCO3 25.4 MMOL/L (23.0-27.0); VENOUS PARTIAL PRESSURE CO2 40.1 mmHg (38.0-50.0); VENOUS PARTIAL PRESSURE O2 37.7 mmHg (30.0-50.0); VENOUS PH 7.419 UNITS (7.330-7.430); VENOUS STANDARD HCO3 24.7 MMOL/L; VENOUS TOTAL CO2 26.6 MMOL/L (24.0-28.0)
[2023-09-30 20:53] LABS: HEMATOCRIT 39.1 % (36.0-47.0); HEMOGLOBIN 13.1 g/dl (12.0-15.5); MEAN CORPUSCULAR HEMOGLOBIN 30.1 pg (27.0-33.0); MEAN CORPUSCULAR HGB CONC 33.5 g/dl (32.0-36.5); MEAN CORPUSCULAR VOLUME 89.9 fl (80.0-96.0); PLATELET COUNT, AUTOMATED 343 10^3/uL (150-450); RED BLOOD COUNT 4.35 10^6/uL (4.00-5.40); WHITE BLOOD COUNT 10.1 10^3/uL (4.0-10.0)
[2023-09-30] MEDS: SODIUM CHLORIDE 0.9% 1000ML IV ONE (21:02)
[2023-09-30 21:24] LABS: CK-MB VALUE MASS 1.2 NG/ML (<3.6)
[2023-09-30 21:26] LABS: ALBUMIN 2.2 G/DL (3.2-5.2); ALKALINE PHOSPHATASE 109 U/L (46-116); ALT/SGPT 26 U/L (7.0-40); AST/SGOT 37 U/L (<34); BILIRUBIN,TOTAL 0.5 MG/DL (0.3-1.2); BLOOD UREA NITROGEN 13 MG/DL (9-23); CALCIUM LEVEL 8.9 MG/DL (8.3-10.6); CARBON DIOXIDE LEVEL 27 MMOL/L (20-31); CHLORIDE LEVEL 104 MMOL/L (98-107); CPK CREATINE PHOSPHOKINASE 54 U/L (34-145); CREATININE FOR GFR 0.72 MG/DL (0.55-1.30); GLOMERULAR FILTRATION RATE > 60.0 (>39); GLUCOSE, FASTING 104 MG/DL (74-106); MAGNESIUM LEVEL 1.9 MG/DL (1.8-2.4); MB/CK RELATIVE INDEX 2.22 (< OR =4); POTASSIUM SERUM 4.2 MMOL/L (3.5-5.1); SODIUM LEVEL 138 MMOL/L (136-145); TOTAL PROTEIN 5.7 G/DL (5.7-8.2)
[2023-09-30] MEDS: PANTOPRAZOLE 40MG VIAL IV SCH (21:30)
[2023-09-30 21:32] LABS: ATYPICAL LYMPH 4 % (0-5); LYMPHOCYTES 13 % (16-44); MONOCYTES 9 % (0-5); NEUTROPHILS 74 % (28-66); PLATELET ESTIMATE NORMAL (NORMAL)
[2023-09-30 21:33] LABS: PROCALCITONIN 2.01 ng/ml
[2023-09-30 21:33] LABS: ANISOCYTOSIS 1+
[2023-09-30] MEDS: FAMOTIDINE 20 MG TAB PO SCH (22:24)
[2023-09-30] MEDS: CEFEPIME HCL 2 GM in D5W 50 ML IV SCH (22:35)
[2023-09-30] MEDS: METOPROLOL SUCC *XL* 25MG TAB (TopROL *XL*) PO SCH (22:53)
[2023-09-30 23:28] LABS: CK-MB VALUE MASS 1.1 NG/ML (<3.6)
[2023-09-30 23:29] LABS: MB/CK RELATIVE INDEX 1.57 (< OR =4)
[2023-10-01 04:00] VITALS: BP 142/79; TEMP 97.9; O2SAT 91
[2023-10-01 06:23] LABS: BASO % 0.4 % (0.0-1.0); EOS # 0.2 10^3/uL (0.0-0.5); EOS % 2.5 % (0.0-3.0); HEMATOCRIT 30.8 % (36.0-47.0); LYMPH # 1.3 10^3/uL (1.5-5.0); LYMPH % 17.3 % (24.0-44.0); MEAN CORPUSCULAR HEMOGLOBIN 30.4 pg (27.0-33.0); MEAN CORPUSCULAR HGB CONC 33.1 g/dl (32.0-36.5); MEAN CORPUSCULAR VOLUME 91.7 fl (80.0-96.0); MONO # 1.1 10^3/uL (0.0-0.8); MONO % 13.9 % (2.0-8.0); NEUTROPHILS # 4.7 10^3/uL (1.5-8.5); NEUTROPHILS % 60.3 % (36.0-66.0); PLATELET COUNT, AUTOMATED 271 10^3/uL (150-450); RED BLOOD COUNT 3.36 10^6/uL (4.00-5.40); WHITE BLOOD COUNT 7.7 10^3/uL (4.0-10.0)
[2023-10-01 06:30] LABS: HEMOGLOBIN 10.2 g/dl (12.0-15.5)
[2023-10-01 06:50] LABS: BLOOD UREA NITROGEN 11 MG/DL (9-23); CALCIUM LEVEL 7.8 MG/DL (8.3-10.6); CARBON DIOXIDE LEVEL 26 MMOL/L (20-31); CHLORIDE LEVEL 107 MMOL/L (98-107); CREATININE FOR GFR 0.64 MG/DL (0.55-1.30); GLOMERULAR FILTRATION RATE > 60.0 (>39); GLUCOSE, FASTING 82 MG/DL (74-106); MAGNESIUM LEVEL 1.8 MG/DL (1.8-2.4); POTASSIUM SERUM 4.2 MMOL/L (3.5-5.1); SODIUM LEVEL 139 MMOL/L (136-145)
[2023-10-01 08:13] VITALS: BP 142/81; TEMP 97.9; O2SAT 91
[2023-10-01] MEDS ORDERED: POTASSIUM CHLORIDE 10MEQ SR TABLET PO SCH (09:00)
[2023-10-01] MEDS: LACTULOSE 20GM/30ML SYRUP UDC PO SCH (09:11)
[2023-10-01] MEDS: GASTROGRAFIN SOLUTION 30ML PO SCH (11:58)
[2023-10-01 12:18] VITALS: BP 163/86; TEMP 98.6
[2023-10-01] MEDS: METOPROLOL TART 50 MG TAB PO SCH (14:51)
[2023-10-01 16:07] VITALS: BP 124/68; TEMP 97.3; O2SAT 96
[2023-10-01 20:00] VITALS: BP 126/67; TEMP 97.5; O2SAT 94
[2023-10-02 00:03] VITALS: BP 130/70; TEMP 98.4; O2SAT 95
[2023-10-02 04:17] VITALS: BP 147/80; TEMP 97.7; O2SAT 98
[2023-10-02 06:59] LABS: BASO % 0.4 % (0.0-1.0); EOS # 0.2 10^3/uL (0.0-0.5); EOS % 2.7 % (0.0-3.0); HEMATOCRIT 30.4 % (36.0-47.0); HEMOGLOBIN 10.1 g/dl (12.0-15.5); LYMPH # 1.2 10^3/uL (1.5-5.0); LYMPH % 13.1 % (24.0-44.0); MEAN CORPUSCULAR HGB CONC 33.2 g/dl (32.0-36.5); MEAN CORPUSCULAR VOLUME 90.2 fl (80.0-96.0); MONO % 11.1 % (2.0-8.0); NEUTROPHILS % 67.1 % (36.0-66.0); PLATELET COUNT, AUTOMATED 307 10^3/uL (150-450); RED BLOOD COUNT 3.37 10^6/uL (4.00-5.40)
[2023-10-02 07:21] LABS: BLOOD UREA NITROGEN 9 MG/DL (9-23); CALCIUM LEVEL 8.1 MG/DL (8.3-10.6); CARBON DIOXIDE LEVEL 27 MMOL/L (20-31); CHLORIDE LEVEL 107 MMOL/L (98-107); CREATININE FOR GFR 0.65 MG/DL (0.55-1.30); GLOMERULAR FILTRATION RATE > 60.0 (>39); GLUCOSE, FASTING 93 MG/DL (74-106); POTASSIUM SERUM 3.8 MMOL/L (3.5-5.1); SODIUM LEVEL 140 MMOL/L (136-145)
[2023-10-02 08:00] VITALS: BP 123/71; TEMP 97.3; O2SAT 95
[2023-10-02] MEDS: FLEET ENEMA PR SCH (09:57)
[2023-10-02] MEDS: PANTOPRAZOLE 40MG TAB (PROTONIX) PO SCH (09:58)
[2023-10-02 12:00] VITALS: BP 123/69; TEMP 98.6; O2SAT 98
[2023-10-02 16:45] VITALS: BP 130/79; TEMP 98.6; O2SAT 100
[2023-10-02 21:03] VITALS: BP 117/65; TEMP 97.7; O2SAT 94
[2023-10-02] MEDS: LevoFLOXacin 750 MG TABLET PO SCH (21:06)
[2023-10-03 04:22] VITALS: BP 146/80; TEMP 97.3; O2SAT 94
[2023-10-03] MEDS ORDERED: PERCOCET PO (07:31)
[2023-10-03] MEDS ORDERED: PANT40TA29 PO (07:31)
[2023-10-03] MEDS ORDERED: METR-265 PO (07:31)
[2023-10-03] MEDS ORDERED: LEVO1TAB40 PO (07:31)
[2023-10-03] MEDS ORDERED: CALC200T15 PO (07:31)
[2023-10-03] MEDS ORDERED: FAMO20TA PO (07:34)
[2023-10-03] MEDS ORDERED: LOPR1TAB6 PO (07:36)
[2023-10-03 08:08] VITALS: BP 127/73; TEMP 98.2; O2SAT 87
[2023-10-03 08:50] VITALS: BP 124/72
[2023-10-03 12:00] VITALS: BP 135/79; TEMP 98.1; O2SAT 99
== END 2023-10-03 16:00 | disposition home health service (06) | DRG 329 ==
LOC: EDBD 04:57 → M ED 04:57 → M ED INP 09:06 → M ICU 16:34 → M PCU 09-29 02:26 → M MS5PR 09-29 20:40
PROVIDERS: ADMIT Surgery; ATTEND General Practice
PROC: 0D1N0Z4 Bypass Sigmoid Colon to Cutaneous, Open Approach (ICD-10-PCS; 2023-09-25)
PROC: 0DBN0ZZ Excision of Sigmoid Colon, Open Approach (ICD-10-PCS; principal; 2023-09-25 11:30)
PROC: 30233N1 Transfusion of Nonautologous Red Blood Cells into Peripheral Vein, Percutaneous Approach (ICD-10-PCS; 2023-09-27)
DX: K63.1 Perforation of intestine (nontraumatic) (principal); K65.9 Peritonitis, unspecified; R18.8 Other ascites; D62 Acute posthemorrhagic anemia; J98.11 Atelectasis; K91.89 Other postprocedural complications and disorders of digestive system; J44.9 Chronic obstructive pulmonary disease, unspecified; E03.9 Hypothyroidism, unspecified; I10 Essential (primary) hypertension; K21.9 Gastro-esophageal reflux disease without esophagitis; I95.9 Hypotension, unspecified; F41.9 Anxiety disorder, unspecified; G25.81 Restless legs syndrome; Z85.828 Personal history of other malignant neoplasm of skin; N20.0 Calculus of kidney; N28.1 Cyst of kidney, acquired; K57.90 Diverticulosis of intestine, part unspecified, without perforation or abscess without bleeding; K44.9 Diaphragmatic hernia without obstruction or gangrene; Z79.899 Other long term (current) drug therapy; Z79.82 Long term (current) use of aspirin; Z88.5 Allergy status to narcotic agent; Z88.8 Allergy status to other drugs, medicaments and biological substances; Z87.891 Personal history of nicotine dependence; I45.10 Unspecified right bundle-branch block; K59.00 Constipation, unspecified

== ENCOUNTER → 2023-12-05 | Outpatient (REF) | payer MEDICARE, OTHER ==
[~2023-12-05] MED LIST changes: +ASPI81TA26 PO; +CALC200T15 PO; +FAMO20TA PO; +LEVO1TAB40 PO; +LOPR1TAB6 PO; +METO1TAB7 PO; +METR-265 PO; +PANT-23 PO; +PANT40TA29 PO; +PERCOCET PO
[2023-12-06 12:57] LABS: PERCENT SATURATION 12.1 % (13.2-45.0)
[2023-12-06 13:00] LABS: FERRITIN 12.8 NG/ML (7.3-270.7)
== END ==
LOC: M LAB REF 12:28
PROVIDERS: ATTEND Internal Medicine
DX: D64.9 Anemia, unspecified (principal)

== ENCOUNTER → 2024-01-17 | Outpatient (CLI) | payer MEDICARE, OTHER | LOC: M SOG 07:20 | PROVIDERS: ATTEND Physician Assistant | DX: M25.561 Pain in right knee (principal); M25.562 Pain in left knee; M11.261 Other chondrocalcinosis, right knee; M11.262 Other chondrocalcinosis, left knee ==

== ENCOUNTER → 2024-02-18 | Outpatient (CLI) | payer MEDICARE ==
[~2024-02-18] MED LIST changes: +GASTROGRAFIN SOLUTION 30ML ONE; +ISOVUE-370 76% 100ML VIAL ONE
== END ==
LOC: M PLAIMG 12:34
PROVIDERS: ATTEND Surgery
DX: Z93.3 Colostomy status (principal)
CPT/HCPCS: 74177; Q9963; Q9967

== ENCOUNTER 2024-03-19 11:56 | Day surgery (SDC) | payer MEDICARE ==
[~2024-03-19] VITALS: Ht 157.5 cm; Wt 56.5 kg
[~2024-03-19 11:56] MED LIST changes: +GABA-1171 PO; -GASTROGRAFIN SOLUTION 30ML ONE; -ISOVUE-370 76% 100ML VIAL ONE; +LACT20EL PO; +METO50TA7 PO
[2024-03-19] MEDS ORDERED: LIDOCAINE 2% 100MG/5ML SDV (FOR ANES.) As Ordered ONE (12:13)
[2024-03-19] MEDS ORDERED: propofoL 200 MG/20 ML VIAL As Ordered ONE (12:14)
[2024-03-19 14:19] VITALS: BP 134/84; O2SAT 98
== END 2024-03-19 14:15 | disposition home or self-care (01) ==
LOC: M OPP 11:56
PROVIDERS: ATTEND Surgery
DX: Z01.818 Encounter for other preprocedural examination (principal); K57.30 Diverticulosis of large intestine without perforation or abscess without bleeding; K62.89 Other specified diseases of anus and rectum; Z93.3 Colostomy status; K21.9 Gastro-esophageal reflux disease without esophagitis; Z87.19 Personal history of other diseases of the digestive system; Z90.49 Acquired absence of other specified parts of digestive tract; E03.9 Hypothyroidism, unspecified; F03.A0 Unspecified dementia, mild, without behavioral disturbance, psychotic disturbance, mood disturbance, and anxiety; Z85.828 Personal history of other malignant neoplasm of skin; J44.9 Chronic obstructive pulmonary disease, unspecified; Z90.710 Acquired absence of both cervix and uterus; R32 Unspecified urinary incontinence; Z79.899 Other long term (current) drug therapy; Z79.82 Long term (current) use of aspirin; Z79.890 Hormone replacement therapy; Z88.5 Allergy status to narcotic agent; Z88.8 Allergy status to other drugs, medicaments and biological substances

== ENCOUNTER → 2024-04-14 | Outpatient (REF) | payer MEDICARE ==
[~2024-04-14] MED LIST changes: +DOCU100C16 PO
[2024-04-14 16:48] LABS: INR 0.94; PARTIAL THROMBOPLASTIN TIME 29.3 SECONDS (24.8-34.2); PROTHROMBIN TIME 12.8 SECONDS (12.5-14.5)
== END ==
LOC: M LAB REF 16:04
PROVIDERS: ATTEND Internal Medicine
DX: Z01.818 Encounter for other preprocedural examination (principal); D64.9 Anemia, unspecified

== ENCOUNTER 2024-04-21 11:01 | Day surgery (SDC) | payer MEDICARE ==
[~2024-04-21] VITALS: Ht 157.5 cm; Wt 56.5 kg
[~2024-04-21 11:01] MED LIST changes: +CYCLOPENTOLATE 1% OPHTH SOLN 2ML BTL OD SCH; +FLURBIPROFEN 0.03% OPHTH SOLN 2.5 ML OD SCH; +LR 1,000 ML IV SCH; +PHENYLEPHRINE 2.5% OPHTH SOL 2ML OD SCH; +TETRACAINE 0.5% OPHTH SOLN 4ML OD SCH
[2024-04-21] MEDS ORDERED: MIDAZOLAM INJ 2MG/2ML VIAL As Ordered ONE (11:47)
[2024-04-21] MEDS ORDERED: fentaNYL 100 MCG/2 ML INJECTION As Ordered ONE (11:47)
[2024-04-21] MEDS: LIDOCAINE 1% SDV 5ML VIAL As Ordered ONE (13:30)
[2024-04-21] MEDS: CEFUROXIME 1MG/0.1ML INTRACAMERAL INJ As Ordered ONE (13:43)
[2024-04-21 13:48] VITALS: BP 123/65; TEMP 97.5; O2SAT 98
== END 2024-04-21 14:13 | disposition home or self-care (01) ==
LOC: M SDC 11:01
PROVIDERS: ATTEND Ophthalmology
DX: H25.12 Age-related nuclear cataract, left eye (principal); H25.011 Cortical age-related cataract, right eye; E78.5 Hyperlipidemia, unspecified; E03.9 Hypothyroidism, unspecified; K57.92 Diverticulitis of intestine, part unspecified, without perforation or abscess without bleeding; J44.9 Chronic obstructive pulmonary disease, unspecified; Z88.5 Allergy status to narcotic agent; Z88.8 Allergy status to other drugs, medicaments and biological substances; I20.9 Angina pectoris, unspecified; K21.9 Gastro-esophageal reflux disease without esophagitis; M81.0 Age-related osteoporosis without current pathological fracture; Z79.899 Other long term (current) drug therapy
CPT/HCPCS: 66984; J0697; J2250; J3010; V2632

== ENCOUNTER 2024-06-09 06:34 | Inpatient (IN) | payer MEDICARE ==
[~2024-06-09] VITALS: Ht 152.4 cm; Wt 59.9 kg
[2024-06-09] VITALS (7 sets, daily range): BP systolic 107–151; BP diastolic 52–74; TEMP 97.4–98.9; O2SAT 94–99
[~2024-06-09 06:34] MED LIST changes: -CYCLOPENTOLATE 1% OPHTH SOLN 2ML BTL OD SCH; -FLURBIPROFEN 0.03% OPHTH SOLN 2.5 ML OD SCH; -LR 1,000 ML IV SCH; -PHENYLEPHRINE 2.5% OPHTH SOL 2ML OD SCH; -TETRACAINE 0.5% OPHTH SOLN 4ML OD SCH
[2024-06-09] MEDS: CelecoXIB 400 MG CAP PO ONE (07:10)
[2024-06-09] MEDS: ALVIMOPAN 12 MG CAPSULE (ENTEREG) PO ONE (07:10)
[2024-06-09] MEDS ORDERED: fentaNYL 100 MCG/2 ML INJECTION As Ordered ONE (07:13)
[2024-06-09] MEDS ORDERED: MIDAZOLAM INJ 2MG/2ML VIAL As Ordered ONE (07:14)
[2024-06-09] MEDS ORDERED: LIDOCAINE 2% 100MG/5ML SDV (FOR ANES.) As Ordered ONE (07:14)
[2024-06-09] MEDS ORDERED: ONDANSETRON 4MG 2ML VIAL As Ordered ONE (07:14)
[2024-06-09] MEDS ORDERED: ROCURONIUM BROMIDE 50MG/5ML VIAL As Ordered ONE (07:14)
[2024-06-09] MEDS ORDERED: SUGAMMADEX SODIUM 500 MG/5 ML VIAL (BRIDION) As Ordered ONE (07:14)
[2024-06-09] MEDS ORDERED: propofoL 200 MG/20 ML VIAL As Ordered ONE (07:17)
[2024-06-09] MEDS ORDERED: LR 1,000 ML IV SCH (07:25)
[2024-06-09] MEDS: ceFAZolin SOD 2 GM in IV 1 EA IV ONE (07:40)
[2024-06-09] MEDS: HEPARIN SOD (PORCINE) 5000UNITS/ML 1ML VIAL/SYRINGE SQ ONE (07:58)
[2024-06-09] MEDS: metroNIDAZOLE 500 MG in IV 1 EA IV ONE (08:00)
[2024-06-09] MEDS ORDERED: KETOROLAC 60MG 2ML VIAL As Ordered ONE (08:02)
[2024-06-09] MEDS ORDERED: ACETAMINOPHEN 1000MG/100ML IV BAG As Ordered ONE (08:02)
[2024-06-09] MEDS ORDERED: dexmedeTOMIDine (4MCG/ML)200MCG/50ML BTL (PRECEDEX) As Ordered ONE (08:48)
[2024-06-09] MEDS: INDOCYANINE GREEN 25MG VIAL (IC-GREEN) As Ordered ONE (11:53)
[2024-06-09] MEDS: ceFAZolin 2 GM/D5W 50 ML IV BAG As Ordered ONE (12:20)
[2024-06-09] MEDS: BUPivacaine LIPOSOME/PF 266MG 20ML VIAL (13.3MG/ML)(EXPAREL) As Ordered ONE (13:42)
[2024-06-09] MEDS: LIDOCAINE 1% SDV 30ML VIAL As Ordered ONE (13:50)
[2024-06-09] MEDS ORDERED: NITROGLYCERIN 0.4MG SUBL TABLET SL PRN (14:05)
[2024-06-09] MEDS ORDERED: MORPHINE 4 MG/ML 1ML VIAL IV PRN (14:05)
[2024-06-09] MEDS ORDERED: PHENYLephrine 500MCG 5ML (100MCG/ML) SYRINGE As Ordered ONE (14:44)
[2024-06-09] MEDS ORDERED: PROMETHAZINE 25MG/ML 1ML VIAL IV PRN ×2 (15:10→18:50)
[2024-06-09] MEDS ORDERED: fentaNYL 100 MCG/2 ML INJECTION IV PRN (15:10)
[2024-06-09] MEDS ORDERED: oxyCODONE 5MG TAB PO PRN (15:10)
[2024-06-09] MEDS: HYDROMORPHONE HCL 0.5 MG/ 0.5 ML SYRINGE IV PRN (15:19)
[2024-06-09] MEDS: ONDANSETRON 4MG 2ML VIAL IV PRN ×2 (15:32→17:29)
[2024-06-09] MEDS: KETOROLAC 30 MG/ML 1ML VIAL IV SCH (18:00)
[2024-06-09] MEDS: LR 1,000 ML IV SCH ×2 (18:16→19:00)
[2024-06-09] MEDS: METOCLOPRAMIDE INJ 10MG/2ML VIAL IV SCH (20:11)
[2024-06-09] MEDS: SENOKOT S TAB PO SCH (20:12)
[2024-06-09] MEDS: METOPROLOL SUCC *XL* 12.5MG PER 1/2 TAB (TopROL *XL*) PO SCH (20:12)
[2024-06-09] MEDS: ALVIMOPAN 12 MG CAPSULE (ENTEREG) PO SCH (20:12)
[2024-06-10 03:01] VITALS: BP 109/56; TEMP 100.1; O2SAT 98
[2024-06-10] MEDS: oxyCODONE 5MG TAB PO PRN ×2 (03:44→20:22)
[2024-06-10 05:52] VITALS: TEMP 100
[2024-06-10] MEDS: LEVOTHYROXINE 50MCG TABLET (0.05MG) PO SCH (06:03)
[2024-06-10 06:39] LABS: BASO % 0.3 % (0.0-1.0); HEMATOCRIT 30.1 % (36.0-47.0); HEMOGLOBIN 9.9 g/dl (12.0-15.5); LYMPH # 0.9 10^3/uL (1.5-5.0); LYMPH % 9.6 % (24.0-44.0); MEAN CORPUSCULAR HEMOGLOBIN 31.1 pg (27.0-33.0); MEAN CORPUSCULAR HGB CONC 32.9 g/dl (32.0-36.5); MEAN CORPUSCULAR VOLUME 94.7 fl (80.0-96.0); MONO # 0.6 10^3/uL (0.0-0.8); NEUTROPHILS # 7.9 10^3/uL (1.5-8.5); NEUTROPHILS % 83.9 % (36.0-66.0); PLATELET COUNT, AUTOMATED 218 10^3/uL (150-450); RED BLOOD COUNT 3.18 10^6/uL (4.00-5.40); WHITE BLOOD COUNT 9.4 10^3/uL (4.0-10.0)
[2024-06-10 06:53] VITALS: BP 104/56; TEMP 98.1; O2SAT 93
[2024-06-10 06:59] LABS: BLOOD UREA NITROGEN 14 MG/DL (9-23); CALCIUM LEVEL 8.1 MG/DL (8.3-10.6); CARBON DIOXIDE LEVEL 26 MMOL/L (20-31); CHLORIDE LEVEL 108 MMOL/L (98-107); CREATININE FOR GFR 0.81 MG/DL (0.55-1.30); GLOMERULAR FILTRATION RATE > 60.0 (>39); GLUCOSE, FASTING 94 MG/DL (74-106); POTASSIUM SERUM 3.8 MMOL/L (3.5-5.1); SODIUM LEVEL 141 MMOL/L (136-145)
[2024-06-10] MEDS: ENOXAPARIN 40MG/0.4ML SYRINGE (J1650 PER 10MG) SC SCH (08:39)
[2024-06-10] MEDS: CALCIUM/VITAMIN D 500 MG TAB PO SCH (08:40)
[2024-06-10] MEDS: ASPIRIN 81MG ENTERIC TABLET PO SCH (08:40)
[2024-06-10] MEDS: PANTOPRAZOLE 40MG TAB (PROTONIX) PO SCH (08:40)
[2024-06-10] MEDS: ACETAMINOPHEN 325 MG TAB PO PRN (11:59)
[2024-06-10 12:15] VITALS: BP 103/52; TEMP 98.9; O2SAT 92
[2024-06-10 19:36] VITALS: BP 110/54; TEMP 99.5; O2SAT 91
[2024-06-11] VITALS (7 sets, daily range): BP systolic 103–141; BP diastolic 55–63; TEMP 97.4–98.8; O2SAT 92–98
[2024-06-11 05:45] LABS: BASO % 0.5 % (0.0-1.0); EOS # 0.1 10^3/uL (0.0-0.5); EOS % 0.7 % (0.0-3.0); HEMATOCRIT 29.5 % (36.0-47.0); HEMOGLOBIN 9.5 g/dl (12.0-15.5); LYMPH # 0.6 10^3/uL (1.5-5.0); LYMPH % 7.7 % (24.0-44.0); MEAN CORPUSCULAR HEMOGLOBIN 30.8 pg (27.0-33.0); MEAN CORPUSCULAR HGB CONC 32.2 g/dl (32.0-36.5); MEAN CORPUSCULAR VOLUME 95.8 fl (80.0-96.0); MONO # 0.6 10^3/uL (0.0-0.8); MONO % 7.2 % (2.0-8.0); NEUTROPHILS # 6.9 10^3/uL (1.5-8.5); NEUTROPHILS % 83.7 % (36.0-66.0); PLATELET COUNT, AUTOMATED 197 10^3/uL (150-450); RED BLOOD COUNT 3.08 10^6/uL (4.00-5.40); WHITE BLOOD COUNT 8.3 10^3/uL (4.0-10.0)
[2024-06-11 06:05] LABS: BLOOD UREA NITROGEN 12 MG/DL (9-23); C REACTIVE PROTEIN QUANTITATIV 18.47 MG/DL (<1.0); CALCIUM LEVEL 8.4 MG/DL (8.3-10.6); CARBON DIOXIDE LEVEL 27 MMOL/L (20-31); CHLORIDE LEVEL 111 MMOL/L (98-107); CREATININE FOR GFR 0.74 MG/DL (0.55-1.30); GLOMERULAR FILTRATION RATE > 60.0 (>39); GLUCOSE, FASTING 86 MG/DL (74-106); POTASSIUM SERUM 3.7 MMOL/L (3.5-5.1); SODIUM LEVEL 145 MMOL/L (136-145)
[2024-06-11] MEDS: LACTULOSE 20GM/30ML SYRUP UDC PO SCH (09:19)
[2024-06-11] MEDS: MAGNESIUM OXIDE 400MG TAB (MAG-OX) PO SCH (20:58)
[2024-06-11] MEDS: PRAMIPEXOLE 0.25 MG TAB PO SCH (20:59)
[2024-06-12 07:50] LABS: BASO % 0.3 % (0.0-1.0); EOS # 0.2 10^3/uL (0.0-0.5); EOS % 1.9 % (0.0-3.0); HEMATOCRIT 33.5 % (36.0-47.0); LYMPH # 0.6 10^3/uL (1.5-5.0); LYMPH % 7.2 % (24.0-44.0); MEAN CORPUSCULAR HEMOGLOBIN 30.9 pg (27.0-33.0); MEAN CORPUSCULAR HGB CONC 32.8 g/dl (32.0-36.5); MEAN CORPUSCULAR VOLUME 94.1 fl (80.0-96.0); MONO # 0.5 10^3/uL (0.0-0.8); MONO % 5.8 % (2.0-8.0); NEUTROPHILS # 7.3 10^3/uL (1.5-8.5); NEUTROPHILS % 84.6 % (36.0-66.0); PLATELET COUNT, AUTOMATED 265 10^3/uL (150-450); RED BLOOD COUNT 3.56 10^6/uL (4.00-5.40); WHITE BLOOD COUNT 8.6 10^3/uL (4.0-10.0)
[2024-06-12] MEDS: SENOKOT S TAB PO SCH (08:03)
[2024-06-12 08:15] LABS: BLOOD UREA NITROGEN 8 MG/DL (9-23); C REACTIVE PROTEIN QUANTITATIV 15.18 MG/DL (<1.0); CALCIUM LEVEL 8.7 MG/DL (8.3-10.6); CARBON DIOXIDE LEVEL 28 MMOL/L (20-31); CHLORIDE LEVEL 109 MMOL/L (98-107); CREATININE FOR GFR 0.66 MG/DL (0.55-1.30); GLOMERULAR FILTRATION RATE > 60.0 (>39); GLUCOSE, FASTING 93 MG/DL (74-106); POTASSIUM SERUM 3.8 MMOL/L (3.5-5.1); SODIUM LEVEL 146 MMOL/L (136-145)
== END 2024-06-12 13:25 | disposition home or self-care (01) | DRG 337 ==
LOC: M OR 06:34 → M PCU 17:21 → M MS4PR 06-11 19:41
PROVIDERS: ADMIT Surgery; ATTEND Surgery
PROC: 0DN84ZZ Release Small Intestine, Percutaneous Endoscopic Approach (ICD-10-PCS; principal; 2024-06-10)
PROC: 8E0W4CZ Robotic Assisted Procedure of Trunk Region, Percutaneous Endoscopic Approach (ICD-10-PCS; 2024-06-10)
PROC: 0WQF4ZZ Repair Abdominal Wall, Percutaneous Endoscopic Approach (ICD-10-PCS; 2024-06-10)
DX: Z43.3 Encounter for attention to colostomy (principal); K66.0 Peritoneal adhesions (postprocedural) (postinfection); J44.9 Chronic obstructive pulmonary disease, unspecified; R50.82 Postprocedural fever; K59.00 Constipation, unspecified; Z87.891 Personal history of nicotine dependence; K44.9 Diaphragmatic hernia without obstruction or gangrene; F41.9 Anxiety disorder, unspecified; G25.81 Restless legs syndrome; Z79.899 Other long term (current) drug therapy; Z79.82 Long term (current) use of aspirin; Z88.5 Allergy status to narcotic agent; Z88.8 Allergy status to other drugs, medicaments and biological substances; Z85.828 Personal history of other malignant neoplasm of skin

== ENCOUNTER 2024-07-07 11:17 | Day surgery (SDC) | payer MEDICARE ==
[~2024-07-07] VITALS: Ht 154.9 cm; Wt 54.2 kg
[~2024-07-07 11:17] MED LIST changes: +LR 1,000 ML IV SCH
[2024-07-07] MEDS: CYCLOPENTOLATE 1% OPHTH SOLN 2ML BTL OS SCH (14:11)
[2024-07-07] MEDS: PHENYLEPHRINE 2.5% OPHTH SOL 2ML OS SCH (14:12)
[2024-07-07] MEDS: FLURBIPROFEN 0.03% OPHTH SOLN 2.5 ML OS SCH (14:12)
[2024-07-07] MEDS: TETRACAINE 0.5% OPHTH SOLN 4ML OS SCH (14:12)
[2024-07-07] MEDS: LIDOCAINE 1% SDV 5ML VIAL As Ordered ONE (14:38)
[2024-07-07] MEDS: CEFUROXIME 1MG/0.1ML INTRACAMERAL INJ As Ordered ONE (14:42)
[2024-07-07 15:00] VITALS: BP 162/73; TEMP 97.7; O2SAT 96
== END 2024-07-07 15:15 | disposition home or self-care (01) ==
LOC: M SDC 11:17
PROVIDERS: ATTEND Ophthalmology
DX: H25.9 Unspecified age-related cataract (principal); J44.9 Chronic obstructive pulmonary disease, unspecified; E03.9 Hypothyroidism, unspecified; I35.1 Nonrheumatic aortic (valve) insufficiency; G25.81 Restless legs syndrome; Z85.828 Personal history of other malignant neoplasm of skin; Z79.890 Hormone replacement therapy; Z79.899 Other long term (current) drug therapy; K21.9 Gastro-esophageal reflux disease without esophagitis; Z93.3 Colostomy status; Z87.891 Personal history of nicotine dependence
CPT/HCPCS: 66984; J0697; V2632

== ENCOUNTER → 2024-07-21 | Outpatient (REF) | payer MEDICARE ==
[~2024-07-21] MED LIST changes: -LR 1,000 ML IV SCH
[2024-07-21 17:55] LABS: INR 0.98; PARTIAL THROMBOPLASTIN TIME 30.8 SECONDS (24.8-34.2); PROTHROMBIN TIME 13.3 SECONDS (12.5-14.5)
== END ==
LOC: M LAB REF 17:04
PROVIDERS: ATTEND Internal Medicine
DX: Z01.818 Encounter for other preprocedural examination (principal)

== ENCOUNTER → 2024-08-18 | Outpatient (CLI) | payer MEDICARE | LOC: M RAD 11:28 | PROVIDERS: ATTEND Internal Medicine | DX: R22.42 Localized swelling, mass and lump, left lower limb (principal) ==

== ENCOUNTER → 2024-11-13 | Outpatient (CLI) | payer MEDICARE ==
[~2024-11-13] MED LIST changes: +PROHANCE 279.3MG/ML 5ML VIAL ONE
== END ==
LOC: M PLAIMG 15:20
PROVIDERS: ATTEND Internal Medicine
DX: K86.2 Cyst of pancreas (principal)
CPT/HCPCS: 74183; A9576

== ENCOUNTER → 2024-12-30 | Outpatient (REF) | payer MEDICARE ==
[~2024-12-30] MED LIST changes: -PROHANCE 279.3MG/ML 5ML VIAL ONE
[2024-12-30 19:19] LABS: APPEARANCE, URINE CLEAR (CLEAR); BACTERIA, URINE AUTO NEGATIVE (NEGATIVE); BILIRUBIN, URINE AUTO NEGATIVE (NEGATIVE); BLOOD, URINE BLOOD 1+ (NEGATIVE); GLUCOSE, URINE (UA) AUTO NEGATIVE (NEGATIVE); KETONE, URINE AUTO NEGATIVE (NEGATIVE); LEUKOCYTE ESTERASE, URINE AUTO 2+ (NEGATIVE); NITRITE, URINE AUTO NEGATIVE (NEGATIVE); PROTEIN, URINE AUTO NEGATIVE (NEGATIVE); RBC, URINE AUTO 1 /HPF (0-3); SPECIFIC GRAVITY URINE AUTO 1.006 (1.002-1.035); SQUAMOUS EPITHELIAL CELL UR AU 1 /HPF (0-6); UROBILINOGEN, URINE AUTO 0.2 mg/dL (0.0-2.0); WBC, URINE AUTO 9 /HPF (0-3)
== END ==
LOC: M LAB REF 17:25
PROVIDERS: ATTEND Physician Assistant
DX: N39.0 Urinary tract infection, site not specified (principal)